=== PATIENT | female | born 1955 | race Caucasian/White ===

== ENCOUNTER 2017-06-09 20:20 | Emergency (ER) | payer OTHER ==
[~2017-06-09] VITALS: Ht 160 cm; Wt 129.5 kg
[~2017-06-09 20:20] MED LIST: ALBUTEROL; ALBUTEROL0.09 MG/A2 INH; AVELOX400 MG PO; BACTRIM DS 8001 TA1 PO; CARAFATE1 GM/10 ML PO; CIPROFLOXACIN500 MG PO; CLONAZEPAM1 MG PO; COLACE1 SUP RC; COLACE20 MG/5 ML PO; COLON HEALTH PO; COUMADIN2.5 MG PO; COUMADIN4 M1 PO; CYCLOBENZAPRINE10 MG PO; FLOVENT DI50 MCG/Act IH; FLUCONAZOLE100 MG PO; JANUVIA100 MG PO; LEVOTHYROXIN PO; LOPRESSOR25 MG PO; MACROBID100 M1 PO; MIRALAX17 GM/PACK PO; MORPHINE SULFAT30 M8 PO; NEXIUM40 MG PO; NORCO 325 MG-101 TAB PO; OSCAL,OYSTER S500 MG PO; OXYGEN NAS; PRILOSEC20 M1 PO; PYRIDIUM100 MG PO; PYRIDIUM200 M1 PO; PYRIDIUM200 MG PO; ROPINIROLE HYDRO1 MG PO; ROPINIROLE PO; SYMBICORT1 AE1 INH; SYNTHROID,LEV175 MCG PO; VICODIN 5/500 505 MG PO; VITAMIN D PO; [UNRECOGNIZED DRUG - OTHER] PO
== END 2017-06-09 22:08 | disposition home or self-care (01) ==
LOC: ED 20:20
DX: S80.02XA Contusion of left knee, initial encounter (principal); M17.12 Unilateral primary osteoarthritis, left knee; Z90.710 Acquired absence of both cervix and uterus; Z98.890 Other specified postprocedural states; Z79.899 Other long term (current) drug therapy; Z88.0 Allergy status to penicillin; Z88.6 Allergy status to analgesic agent; Z88.1 Allergy status to other antibiotic agents; W22.8XXA Striking against or struck by other objects, initial encounter; Y93.89 Activity, other specified; Y92.89 Other specified places as the place of occurrence of the external cause; Y99.9 Unspecified external cause status

== ENCOUNTER → 2017-06-17 | Outpatient (CLI) | payer OTHER ==
[2017-06-17 11:54] LABS: INTERNATIONAL NORM RATIO 2.5 (2.0-3.5)
== END | disposition home or self-care (01) ==
LOC: LAB 09:15
PROVIDERS: Family Medicine
DX: R79.1 Abnormal coagulation profile (principal)

== ENCOUNTER 2017-06-26 03:12 | Inpatient (IN) | payer OTHER ==
[~2017-06-26] VITALS: Ht 160 cm; Wt 131.3 kg
[2017-06-26] VITALS (8 sets, daily range): BP systolic 126–149; BP diastolic 40–80
[2017-06-26 04:08] LABS: BASO % 0.2 % (0.0-1.0); EOS % 0.2 % (1.0-4.0); HEMATOCRIT 43.4 % (37.0-47.0); HEMOGLOBIN 13.3 g/dl (12.0-16.0); LYMPH # 1.9 10*3/uL (1.3-4.4); MEAN CELL VOLUME 85.6 fl (81.0-99.0); MEAN CORPUSCULAR HGB 26.2 pg (27.0-31.0); MEAN CORPUSCULAR HGB CONC 30.6 g/dl (33.0-37.0); MEAN PLATELET VOLUME 10.3 fl (9.6-12.3); MONO # 0.4 10*3/uL (0.1-1.0); MONO % 4.7 % (3.0-9.0); NEUT # 6.9 10*3/uL (2.3-7.9); NEUT % 73.9 % (47.0-73.0); PLATELET COUNT AUTOMATED 205 10*3/uL (130-400); RED BLOOD COUNT 5.07 10*6/uL (4.10-5.10); RED CELL DISTRI WIDTH 15.9 % (0-14.5); WHITE BLOOD COUNT 9.3 10*3/uL (4.8-10.8)
[2017-06-26 04:12] LABS: BILIRUBIN NEGATIVE (NEGATIVE); BLOOD NEGATIVE (NEGATIVE); CLARITY CLEAR (CLEAR); COLOR YELLOW (YELLOW); GLUCOSE 3+ (NEGATIVE); KETONE TRACE (NEGATIVE); LEUKO ESTERASE TRACE (NEGATIVE); NITRITE NEGATIVE (NEGATIVE); PH 6.5 (5.0-9.0); SPECIFIC GRAVITY <= 1.005 (1.005-1.030); UROBILINOGEN 0.2 E.U./dl (0.2-1.0)
[2017-06-26 04:19] LABS: INTERNATIONAL NORM RATIO 1.9 (2.0-3.5)
[2017-06-26 04:26] LABS: ALBUMIN 3.6 gm/dl (3.1-4.5); ALKALINE PHOSPHATASE 149 U/L (45-117); BUN 18 mg/dl (7-24); CHLORIDE 96 mmol/L (98-107); CREATININE 1.11 mg/dL (0.55-1.02); LIPASE 79 U/L (73-393); POTASSIUM 4.1 mmol/L (3.5-5.1); SGOT/AST 22 IU/L (3-35); SGPT/ALT 49 U/L (12-78); SODIUM 136 mmol/L (136-145)
[2017-06-26 04:26] LABS: BACTERIA TRACE
[2017-06-26 04:29] LABS: TROPONIN I < 0.015 ng/ml (<0.045)
[2017-06-26] MEDS ORDERED: PROVENTIL HFA6.7 GM INH (08:05)
[2017-06-26] MEDS ORDERED: OSCAL/D,OYSTER250 MG PO (08:08)
[2017-06-26] MEDS ORDERED: LEVOTHYROXINE200 MC2 PO (08:12)
[2017-06-26] MEDS ORDERED: LEVOTHYROXINE50 MCG PO (08:13)
[2017-06-26] MEDS ORDERED: ROPINIROLE HYDRO2 M2 PO (08:19)
[2017-06-26] MEDS ORDERED: VITAMIN D32000 UNIT PO (08:23)
[2017-06-26] MEDS ORDERED: COUMADIN5 M2 PO (08:26)
[2017-06-26] MEDS ORDERED: FLONASE ALLERG9.9 ML NAS (08:29)
[2017-06-26] MEDS ORDERED: LASIX20 MG PO (08:30)
[2017-06-26] MEDS ORDERED: TRESIBA FL100 UNIT/1 SQ ×3 (08:32→17:27)
[2017-06-26] MEDS ORDERED: POTASSIUM CHLO10 ME4 PO (08:34)
[2017-06-26] MEDS ORDERED: HUMALOG100 UNIT/1 SQ ×2 (16:04→17:34)
[2017-06-26] MEDS ORDERED: LEVEMIR FL100 UNIT/1 SQ ×2 (16:05→17:32)
[2017-06-27] VITALS: BP 142/73
[2017-06-27 07:23] LABS: BASO % 0.2 % (0.0-1.0); EOS # 0.1 10*3/uL (0.0-0.4); EOS % 1.2 % (1.0-4.0); HEMOGLOBIN 13.1 g/dl (12.0-16.0); LYMPH % 36.5 % (27.0-41.0); MEAN CELL VOLUME 85.7 fl (81.0-99.0); MEAN CORPUSCULAR HGB 26.1 pg (27.0-31.0); MEAN CORPUSCULAR HGB CONC 30.5 g/dl (33.0-37.0); MEAN PLATELET VOLUME 10.9 fl (9.6-12.3); MONO # 0.4 10*3/uL (0.1-1.0); MONO % 4.9 % (3.0-9.0); NEUT # 4.6 10*3/uL (2.3-7.9); PLATELET COUNT AUTOMATED 215 10*3/uL (130-400); RED BLOOD COUNT 5.02 10*6/uL (4.10-5.10); RED CELL DISTRI WIDTH 16.3 % (0-14.5); WHITE BLOOD COUNT 8.2 10*3/uL (4.8-10.8)
[2017-06-27 07:34] LABS: INTERNATIONAL NORM RATIO 1.5 (2.0-3.5)
[2017-06-27 07:43] LABS: BUN 10 mg/dl (7-24); CHLORIDE 98 mmol/L (98-107); CHOLESTEROL 258 mg/dL (<200); CREATININE 0.77 mg/dL (0.55-1.02); PHOSPHOROUS 2.7 mg/dL (2.5-4.9); POTASSIUM 3.9 mmol/L (3.5-5.1); SODIUM 138 mmol/L (136-145); TRIGLYCERIDES 249 mg/dl (<150); VLDL CHOLESTEROL 50 mg/dL (6-40)
[2017-06-27 07:54] LABS: FREE T4 1.25 ng/dl (0.76-1.46); HDL CHOLESTEROL 70 mg/dl (40-60); LDL CHOLESTEROL 138 mg/dL (9-159); THYROID STIM HORMONE (HS) 0.699 uIU/ml (0.358-4.75)
[2017-06-27 08:00] VITALS: BP 134/50
[2017-06-27 09:23] LABS: VITAMIN D, 25-HYDROXY 66.2 ng/mL (30-100)
[2017-06-27 12:00] VITALS: BP 124/62
[2017-06-27 16:00] VITALS: BP 153/71
[2017-06-27 20:00] VITALS: BP 152/73
[2017-06-28] VITALS: BP 151/72
[2017-06-28 06:33] LABS: INTERNATIONAL NORM RATIO 1.7 (2.0-3.5)
[2017-06-28 08:00] VITALS: BP 162/71
[2017-06-28 11:48] VITALS: BP 151/67
[2017-06-28] MEDS ORDERED: Humalog SQ (15:40)
== END 2017-06-28 16:03 | disposition home or self-care (01) | DRG 637 ==
LOC: ED 03:12 → 5E 05:38 → EDHOLD 05:38 → 5E 05:52
PROVIDERS: Emergency Medicine Emergency Medical Services; Internal Medicine; Student in an Organized Health Care Education/Training Program
DX: E11.65 Type 2 diabetes mellitus with hyperglycemia (principal); G93.41 Metabolic encephalopathy; E87.2 Acidosis; E87.8 Other disorders of electrolyte and fluid balance, not elsewhere classified; E66.01 Morbid (severe) obesity due to excess calories; E83.41 Hypermagnesemia; Z68.43 Body mass index [BMI] 50.0-59.9, adult; D86.9 Sarcoidosis, unspecified; M31.6 Other giant cell arteritis; I10 Essential (primary) hypertension; E78.5 Hyperlipidemia, unspecified; M17.12 Unilateral primary osteoarthritis, left knee; J42 Unspecified chronic bronchitis; Z79.01 Long term (current) use of anticoagulants; Z99.81 Dependence on supplemental oxygen; Z86.718 Personal history of other venous thrombosis and embolism; Z79.51 Long term (current) use of inhaled steroids; Z79.4 Long term (current) use of insulin; Z90.49 Acquired absence of other specified parts of digestive tract; Z79.899 Other long term (current) drug therapy; Z90.710 Acquired absence of both cervix and uterus; Z88.1 Allergy status to other antibiotic agents; Z88.0 Allergy status to penicillin; Z88.8 Allergy status to other drugs, medicaments and biological substances

== ENCOUNTER 2017-07-23 09:18 | Inpatient (IN) | payer OTHER ==
[~2017-07-23] VITALS: Ht 157.4 cm; Wt 130.0 kg
--- NOTE | ~2017-07-23 | PR ---
[place], [place] PROGRESS NOTE NAME: DOMINICK GREGORY [facility] #: [id number] UNIT #: [id number] ROOM: 525 DOCTOR: DULCE OVIEDO MD,NOEMI BIRTHDATE: [birth year] DOS: 07/25/2017 PULMONARY PROGRESS NOTE SUBJECTIVE: The patient has been kept n.p.o. for the bronchoscopy planned for today. She has not been noted any symptoms of chest pain or any hemoptysis. Coughing remains, persistent for this patient as previously without changes as [id number]. Denies symptoms of abdominal pain. Denies symptoms of nausea or vomiting. She has not been reported any changes in the chronic swelling of the left lower extremity. Remaining systems were reviewed. They were noted all negative. PHYSICAL EXAMINATION: VITAL SIGNS: Normal temperature, respiratory rate 18, heart rate 75, blood pressure 117/46 and 118/53. The pulse oxygen saturation recorded as 98% saturation on 2 liters nasal cannula. HEENT: Head was atraumatic, chronic obesity. NECK: Supple. CARDIOVASCULAR: S1, S2 audible. LUNGS: The patient was noted without any wheezing or crackles at the present time. Breaths are noted moderately diminished bilaterally today. ABDOMEN: Soft and nontender, positive present. EXTREMITIES: Noted without any new changes. Chronic edema of the extremities, noted on the left side. SKIN: Visible skin, no lesions or rashes. CENTRAL NERVOUS SYSTEM: Noted without any gross focal neurologic deficit. LABORATORY DATA: Ultrasound of lower extremities without any evidence of deep venous thrombosis. The PT/INR for the patient this morning was done was noted 1.1, which is normal. BMP this morning, glucose 250. BUN and creatinine was normal. IMPRESSION: The patient with ongoing severe coughing. Bronchial asthma exacerbation with persistent respiratory symptoms, not resolving. Current plan of treatment for acute chronic edema of lower extremities, history of recurrent deep venous thrombosis, ____therapeutic INR, after administration of vitamin K. Acute chronic obesity with suspected diagnosis of obstructive sleep apnea disorder. PLAN OF TREATMENT: No changes in the plan of care for the patient at this time needs to be done. Proceed with the fiberoptic bronchoscopy already planned. The patient's anticoagulation will be resumed after an uneventful bronchoscopy. No additional change in treatment otherwise will be made for today. Usual care, supportive therapy, plan of management and care. [place], [place] PROGRESS NOTE NAME: DOMINICK GREGORY UNIT #: [id number] ROOM: [facility] DOCTOR: NOEMI MARQUIS MD BIRTHDATE: [birth year] NOEMI CARDONA MD CM:NAVEEN [id number] NOEMI OVIEDO MD 07/26/17 0416 interface
--- NOTE | ~2017-07-23 | PROC NOTE ---
[place], [place] PROCEDURE NOTE NAME: DOMINICK GREGORY UNIT #: [id number] ROOM: 525 DOCTOR: DULCE OVIEDO MD,NOEMI BIRTHDATE: [birth year] DOS: 07/25/2017 PREOPERATIVE DIAGNOSES: Persistent severe nonproductive cough, which has been noted ongoing, nonresolving with previous treatment to current therapy. POSTOPERATIVE DIAGNOSES: Removal of the moderate amount of mucus impaction in airways, greater in the left than the right side. PROCEDURE DESCRIPTION: Informed consent obtained for the patient. She was brought to the OR and placed in supine position. Conscious sedation administered by the Anesthesia Department. After achieving good sedation for the patient, the bronchoscope was advanced to the airway into laryngeal area. Epiglottis and vocal cords were seen. Bronchoscope advanced through the vocal cord and tracheal lumen. Tracheal lumen was identified and noted with moderate amount of secretion. Secretion present in the tracheal lumen was suctioned out. The patient was noted with moderate impaction of the mucus plug in the left lower and lingular opening. The right side of the airway was noted with a small mucus impaction. The procedure was well tolerated by the patient without any difficulty. Postoperative findings will be discussed with the patient once the patient recovers the effects of acute sedation. No immediate treatment changes will be needed. NOEMI CARODNA MD CM:PROCNOTE:PROCEDURE NOTE [id number] NOEMI OVIEDO MD
--- NOTE | ~2017-07-23 | PR ---
[place], [place] PROGRESS NOTE NAME: DOMINICK GREGORY UNIT #: [id number] ROOM: 525 DOCTOR: NOEMI MARQUIS MD BIRTHDATE: [birth year] DOS: 07/26/2017 SUBJECTIVE: Bronchoscopy done yesterday, which resulted in marked improvement in the coughing as well as wheezing. The patient denies symptoms of chest pain. Denies symptoms of hemoptysis. She has been comfortably resting on the bed for the patient using the oxygen supplementation. OBJECTIVE: VITAL SIGNS: The patient showed normal temperature, respiratory rate 20, heart rate 69, blood pressure 113/54, pulse oxygen saturation on 2 liters nasal canula 100% saturation at rest. HEENT: Head was atraumatic. Eyes nonicterus. NECK: Supple. CARDIOVASCULAR SYSTEM: S1, S2 is audible. LUNGS: Noted clear to auscultation bilaterally. No wheezing or crackles today. ABDOMEN: Soft, nontender. EXTREMITIES: Without any acute edema. LABORATORY DATA: The culture of the bronchial washing of the patient was noted as normal denise. Final results were pending. Gram stain many white blood cells, few epithelial cells, moderate gram-positive cocci in pairs, chains and clusters. IMPRESSION: The patient with significant improvement noted with coughing. After removal of the mucous impaction, major airways resolving bronchial asthma, chronic deep venous thrombosis. Lower extremity currently treated with anticoagulation, subtherapeutic INR. The patient was given vitamin K. There was no evidence of acute deep venous thrombosis, lower extremity. PLAN OF TREATMENT: The patient could be discharged home with tapering dose of prednisone and oral antibiotics. She was advised to resume her previous anticoagulation noted effective to maintain a therapeutic INR as previously. The INR should be in the therapeutic range in the next couple of days with continued treatment. [place], [place] PROGRESS NOTE NAME: DOMINICK GREGORY UNIT #: [id number] ROOM: 525 DOCTOR: NOEMI MARQUIS MD BIRTHDATE: [birth year] NOEMI CARDONA MD CM:PNTRANS [id number] NOEMI OVIEDO MD 07/27/17 1034 interface
--- NOTE | ~2017-07-23 | CON ---
[place], [place] REPORT OF CONSULTATION NAME: DOMINICK GREGORY [facility] #: [id number] UNIT #: [id number] ROOM: 525 DOCTOR: DULCE OVIEDO MDNOEMI BIRTHDATE: [birth year] DOS: 07/24/2017 PULMONARY CONSULTATION, EVALUATION, AND MANAGEMENT CONSULTATION REQUESTED BY: Hospitalist services. REASON FOR CONSULTATION: For assessment of acute exacerbation of COPD. HISTORY OF PRESENT ILLNESS: This is a 61-year-old white female patient with known multiple medical problems including COPD, chronic hypoxic respiratory failure, has been noted with increased symptoms of coughing, chest congestion, and shortness of breath ongoing for the past several days. The patient stated the symptoms have been noted progressively worsening, now resolved. She has been admitted in [facility] per records in the Psychiatry Department for a couple of weeks for the medical management of visual hallucination and other issues and discharged about a week ago. The patient's symptoms has been noted progressively worsening at this time. She has been noted severe cough, which has been noted nonproductive. She has not been expectorate sputum, noted excessive chest congestion continuously. Shortness of breath was noted at rest, mildly. The patient denies symptoms of hemoptysis with those symptoms. Denies symptoms of chest trauma. REVIEW OF SYSTEMS: CONSTITUTIONAL SYMPTOMS: Fatigue and tiredness noted without symptoms of fever or chills. EYES: Denies burning, redness, or tenderness. EARS, NOSE, AND THROAT SYMPTOMS: Denies sore throat, hoarseness, or otalgia. CARDIOVASCULAR SYSTEM: Denies any pain, edema, or pain of lower extremity. GASTROINTESTINAL SYMPTOMS: Denies dysphagia, nausea, vomiting, diarrhea, abdominal pain, hematemesis, melena, or hematochezia. GENITOURINARY SYMPTOMS: Denies dysuria, suprapubic pain, or hematuria. MUSCULOSKELETAL SYMPTOMS: The patient denies any acute joint pain, redness, or tenderness. SKIN: Noted without any lesions or rashes. CENTRAL NERVOUS SYSTEM: Denies symptoms of seizures. Denies symptoms of diplopia. Remaining systems were reviewed and they were noted all negative. PAST MEDICAL HISTORY: Known with history of: 1. Diagnosis of sarcoidosis, details unknown at this time. 2. COPD. 3. Giant cell arteritis. 4. Essential hypertension. 5. History of recurrent deep venous thrombosis. 6. Hypomagnesemia. 7. Lactic acidosis. 8. Morbid obesity. 9. Osteoarthritis of the major joints. 10. Chronic hypoxic respiratory failure, use of oxygen 2 liter nasal cannula. 11. History of hypothyroidism. [place], [place] REPORT OF CONSULTATION NAME: DOMINICK GREGORY UNIT #: [id number] ROOM: [facility] DOCTOR: DULCE OVIEDO MD,NOEMI BIRTHDATE: [birth year] 12. History of allergic rhinitis. 13. History of restless leg syndrome. PAST SURGICAL HISTORY: Noted: 1. Complete abdominal hysterectomy. 2. Appendectomy. 3. Cholecystectomy. 4. Temporal artery biopsy. 5. T and A. SOCIAL HISTORY: Reported , has 2 children, and lived at home. She has been exposed to secondhand smoke, but does not have a primary history of tobacco use. FAMILY HISTORY: The patient's father at age 50+ years-old from complication of myocardial infarction. Mother at age [id number] from complication of CVA. HOME MEDICATIONS: Listed as use of Proventil HFA, Symbicort, cyclobenzaprine, Bentyl, Depakote, vitamin D, Flonase, Lasix, Levemir insulin, sliding scale insulin coverage, levothyroxine, Tradjenta, Lopressor, morphine sulfate 30 mg b.i.d. oral, MiraLax, prednisone 10 mg daily, Risperdal, Requip, and Coumadin. DRUG ALLERGIES: NOTED WITH MULTIPLE ALLERGIES THAT INCLUDE CEPHALOSPORINS, MACROLIDES, PENICILLINS, PROSTAGLANDINS, TRICYCLIC COMPOUNDS, Z-MIRTA, AMITRIPTYLINE, CELEBREX, CLINDAMYCIN, ARTHROTEC, DOXYCYCLINE, CYMBALTA, ZETIA, TRICOR, SINGULAIR, MACROBID, TOPAMAX, AND EFFEXOR. PHYSICAL EXAMINATION: GENERAL: This is a 61-year-old female patient who has been currently lying in the bed without any acute distress, noted coughing without any sputum expectoration. Height was noted 5 feet 3 inches, weight of 286 pounds, and BMI 52.4. VITAL SIGNS: Vital signs of the patient, which has been recorded showed normal temperature to 99.2 degree Fahrenheit, respiratory rate 18-20, heart rate 86-77, blood pressure 120/51-123/47. Pulse oxygen saturation on 2 liters nasal cannula is 94% saturation recorded. HEENT: On examination, head was atraumatic. Eyes nonicterus. NECK: Supple. Severe decreased posterior pharyngeal space ____ and ____ of soft tissue structures. CARDIOVASCULAR: S1, S2 is audible. LUNGS: The patient was noted with moderate decreased breath sounds noted in the lungs bilaterally with expiratory wheezing. There were no crackles. ABDOMEN: Soft, obese, and nontender. Bowel sounds present. EXTREMITIES: The patient noted chronic obesity with edema, which is described as chronic by the patient on the left lower extremity. VISIBLE SKIN: No lesions or rashes. MUSCULOSKELETAL SYMPTOMS: The patient without any acute deformities. CENTRAL NERVOUS SYSTEM: The patient's cranial nerves 2-12 intact. [place], [place] REPORT OF CONSULTATION NAME: DOMINICK GREGORY UNIT #: [id number] ROOM: [facility] DOCTOR: BRITTA MARQUIS MDM BIRTHDATE: [birth year] LABORATORY DATA: The chest x-ray of the patient yesterday, 1 view noted clear of any acute infiltration. PT and INR were noted yesterday 2.3 and this morning was noted as 2.3 as well. Lactic acid yesterday noted 3.1. CBC for the patient yesterday admission, WBC count 14.4, hemoglobin and hematocrit normal, and platelet count was normal. CMP of the patient that was done, glucose 192, BUN 24, and creatinine was normal. CMP for the patient that was done this morning shows glucose 227, BUN and creatinine were normal. CBC of this morning, WBC count remains normal, hemoglobin 10.3, and platelet count normal. The culture of the sputum was pending for today. Gram stain has many white blood cells, moderate epithelial cells, a few gram-positive cocci in pairs, and gram-negative diplococci. IMPRESSION: 1. The patient who has been currently treated for acute exacerbation of chronic obstructive pulmonary disease, severe coughing, and chest congestion reported by the patient for several days without any improvement. 2. Chronic anticoagulation, which has been noted with a history of recurrent deep venous thrombosis of the lower extremities. 3. History of allergic rhinitis. 4. Severe morbid obesity. 5. Restless leg syndrome. 6. Hypothyroidism. PLAN OF THERAPY: The patient will be given one dose of vitamin K 2.5 mg to reduce the INR. The bronchoscopy will be done tomorrow morning for assessment of current severe nonproductive cough, which is not responding to the treatment. Continuation of the bronchodilators as well. Continue oxygen supplementation to maintain a pulse oxygen saturation 92% or greater. Chest x-ray does not show any evidence of acute pneumonia. Further additional treatment changes will be made for this patient based on the progression of the illness. Risk and benefits of bronchoscopy were discussed with the patient and accepted by the patient. Thanks for allowing me to participate in the care of this patient. NOEMI CARDONA MD CM:CONSTR:REPORT OF CONSULTATION 1433 07/25/17 0125 interface
--- NOTE | ~2017-07-23 | EKG ---
[place], [place] ELECTROCARDIOGRAM REPORT NAME: DOMINICK GREGORY UNIT #: [id number] ROOM: [facility] DOCTOR: DULCE OVIEDO MD,NOEMI BIRTHDATE: [birth year] DOS: 07/23/2017 ELECTROCARDIOGRAM TIME: 9:45 a.m. CONCLUSION: Normal sinus rhythm noted. Heart rate 99 beats per minute. No other electrocardiographic abnormalities were noted. NOEMI CARDONA MD CM:EKGRPT:ELECTROCARDIOGRAM REPORT [id number] NOEMI OVIEDO MD
[~2017-07-23 09:18] MED LIST changes: +COUMADIN5 M2 PO; +FLONASE ALLERG9.9 ML NAS; +HUMALOG100 UNIT/1 SQ; +Humalog SQ; +LASIX20 MG PO; +LEVEMIR FL100 UNIT/1 SQ; +LEVOTHYROXINE200 MC2 PO; +LEVOTHYROXINE50 MCG PO; +OSCAL/D,OYSTER250 MG PO; +POTASSIUM CHLO10 ME4 PO; +PROVENTIL HFA6.7 GM INH; +ROPINIROLE HYDRO2 M2 PO; +TRESIBA FL100 UNIT/1 SQ; +VITAMIN D32000 UNIT PO
[2017-07-23 09:27] VITALS: BP 123/46
[2017-07-23 09:54] LABS: BASO % 0.2 % (0.0-1.0); EOS # 0.1 10*3/uL (0.0-0.4); EOS % 0.6 % (1.0-4.0); HEMATOCRIT 39.8 % (37.0-47.0); HEMOGLOBIN 12.1 g/dl (12.0-16.0); LYMPH # 1.3 10*3/uL (1.3-4.4); LYMPH % 9.2 % (27.0-41.0); MEAN CELL VOLUME 88.4 fl (81.0-99.0); MEAN CORPUSCULAR HGB 26.9 pg (27.0-31.0); MEAN CORPUSCULAR HGB CONC 30.4 g/dl (33.0-37.0); MEAN PLATELET VOLUME 10.8 fl (9.6-12.3); MONO % 7.1 % (3.0-9.0); NEUT # 11.8 10*3/uL (2.3-7.9); NEUT % 81.8 % (47.0-73.0); PLATELET COUNT AUTOMATED 198 10*3/uL (130-400); RED CELL DISTRI WIDTH 16.9 % (0-14.5); WHITE BLOOD COUNT 14.4 10*3/uL (4.8-10.8)
[2017-07-23 10:03] LABS: ACT PARTIAL THROMBO TIME 27.3 SECONDS (20.8-31.5); INTERNATIONAL NORM RATIO 2.3 (2.0-3.5)
[2017-07-23 10:39] LABS: ALKALINE PHOSPHATASE 137 U/L (45-117); BUN 24 mg/dl (7-24); CHLORIDE 98 mmol/L (98-107); CREATININE 0.88 mg/dL (0.55-1.02); POTASSIUM 3.9 mmol/L (3.5-5.1); SGOT/AST 16 IU/L (3-35); SGPT/ALT 40 U/L (12-78); SODIUM 139 mmol/L (136-145)
[2017-07-23 10:42] LABS: TROPONIN I < 0.015 ng/ml (<0.045)
[2017-07-23 11:07] VITALS: BP 111/87; BP 114/44
[2017-07-23 11:13] LABS: BILIRUBIN NEGATIVE (NEGATIVE); BLOOD NEGATIVE (NEGATIVE); CLARITY CLEAR (CLEAR); COLOR YELLOW (YELLOW); GLUCOSE 3+ (NEGATIVE); KETONE TRACE (NEGATIVE); LEUKO ESTERASE NEGATIVE (NEGATIVE); NITRITE NEGATIVE (NEGATIVE); PH 5.5 (5.0-9.0); SPECIFIC GRAVITY 1.015 (1.005-1.030); UROBILINOGEN 0.2 E.U./dl (0.2-1.0)
[2017-07-23] MEDS ORDERED: ERGOCAL2500 UNIT PO (11:55)
[2017-07-23 12:00] VITALS: BP 134/60
[2017-07-23] MEDS ORDERED: LEVOTHYROXINE75 MCG PO (12:01)
[2017-07-23] MEDS ORDERED: COUMADIN2.5 M1 PO (12:09)
[2017-07-23] MEDS ORDERED: WARFARIN SOD5 MG PO (12:10)
[2017-07-23] MEDS ORDERED: HUMALOG100 UNIT/1 SQ (12:15)
[2017-07-23] MEDS ORDERED: DELTASONE20 M1 PO (12:19)
[2017-07-23] MEDS ORDERED: TRADJENTA5 M1 PO (12:22)
[2017-07-23] MEDS ORDERED: LEVEMIR100 UNIT/1 SQ (12:23)
[2017-07-23] MEDS ORDERED: BENTYL PO (12:29)
[2017-07-23] MEDS ORDERED: DEPAKOTE ER250 MG PO (12:30)
[2017-07-23] MEDS ORDERED: RISPERDAL1 M1 PO (12:31)
[2017-07-23] MEDS ORDERED: COLON HERBAL C1 EACH PO (12:37)
[2017-07-23] MEDS ORDERED: Depakote250 MG PO (12:51)
[2017-07-23 16:00] VITALS: BP 134/55
[2017-07-23 20:00] VITALS: BP 123/47
[2017-07-24] VITALS: BP 119/55
[2017-07-24 06:46] LABS: HEMOGLOBIN 10.3 g/dl (12.0-16.0); MEAN CELL VOLUME 87.2 fl (81.0-99.0); MEAN CORPUSCULAR HGB 26.9 pg (27.0-31.0); MEAN CORPUSCULAR HGB CONC 30.8 g/dl (33.0-37.0); MEAN PLATELET VOLUME 11.1 fl (9.6-12.3); PLATELET COUNT AUTOMATED 178 10*3/uL (130-400); RED BLOOD COUNT 3.83 10*6/uL (4.10-5.10); RED CELL DISTRI WIDTH 17.2 % (0-14.5); WHITE BLOOD COUNT 10.7 10*3/uL (4.8-10.8)
[2017-07-24 06:50] LABS: HEMATOCRIT 33.4 % (37.0-47.0)
[2017-07-24 07:04] LABS: ACT PARTIAL THROMBO TIME 34.5 SECONDS (20.8-31.5); ALBUMIN 2.4 gm/dl (3.1-4.5); ALKALINE PHOSPHATASE 99 U/L (45-117); BUN 20 mg/dl (7-24); CHLORIDE 102 mmol/L (98-107); CREATININE 0.69 mg/dL (0.55-1.02); INTERNATIONAL NORM RATIO 2.3 (2.0-3.5); POTASSIUM 4.3 mmol/L (3.5-5.1); SGOT/AST 12 IU/L (3-35); SGPT/ALT 37 U/L (12-78); SODIUM 140 mmol/L (136-145); TOTAL PROTEIN 5.4 gm/dL (6.4-8.2)
[2017-07-24 07:17] LABS: PLATELET SUFFICIENCY NORMAL (NORMAL); TOTAL CELLS COUNTED 100 #CELLS
[2017-07-24 08:00] VITALS: BP 120/51
[2017-07-24 16:00] VITALS: BP 137/70
[2017-07-24 20:00] VITALS: BP 110/54; BP 137/62
[2017-07-25] VITALS (9 sets, daily range): BP systolic 110–131; BP diastolic 45–65
[2017-07-25 06:37] LABS: INTERNATIONAL NORM RATIO 1.1 (2.0-3.5)
[2017-07-25 06:47] LABS: CHLORIDE 104 mmol/L (98-107); POTASSIUM 4.4 mmol/L (3.5-5.1); SODIUM 141 mmol/L (136-145)
[2017-07-25 06:51] LABS: BUN 21 mg/dl (7-24); CREATININE 0.71 mg/dL (0.55-1.02); PHOSPHOROUS 3.4 mg/dL (2.5-4.9)
[2017-07-26] VITALS: BP 132/56
[2017-07-26 06:33] LABS: BASO % 0.1 % (0.0-1.0); HEMATOCRIT 32.4 % (37.0-47.0); LYMPH # 0.7 10*3/uL (1.3-4.4); LYMPH % 8.1 % (27.0-41.0); MEAN CELL VOLUME 87.8 fl (81.0-99.0); MEAN CORPUSCULAR HGB 27.1 pg (27.0-31.0); MEAN CORPUSCULAR HGB CONC 30.9 g/dl (33.0-37.0); MEAN PLATELET VOLUME 10.9 fl (9.6-12.3); MONO # 0.3 10*3/uL (0.1-1.0); MONO % 3.2 % (3.0-9.0); NEUT # 7.7 10*3/uL (2.3-7.9); NEUT % 86.8 % (47.0-73.0); PLATELET COUNT AUTOMATED 187 10*3/uL (130-400); RED BLOOD COUNT 3.69 10*6/uL (4.10-5.10); RED CELL DISTRI WIDTH 16.9 % (0-14.5); WHITE BLOOD COUNT 8.8 10*3/uL (4.8-10.8)
[2017-07-26 06:52] LABS: BUN 19 mg/dl (7-24); CHLORIDE 103 mmol/L (98-107); CREATININE 0.71 mg/dL (0.55-1.02); POTASSIUM 4.4 mmol/L (3.5-5.1); SODIUM 142 mmol/L (136-145)
[2017-07-26 08:00] VITALS: BP 128/59
[2017-07-26] MEDS ORDERED: LEVOFLOXACIN500 MG PO (10:26)
[2017-07-26] MEDS ORDERED: PREDNISONE10 MG PO (10:26)
[2017-07-26 12:00] VITALS: BP 113/54
[2017-07-26 15:09] LABS: ACID FAST SPEC PROCESSING Concentration (.)
[2017-07-26 16:00] VITALS: BP 117/63
== END 2017-07-26 18:05 | disposition home or self-care (01) | DRG 871 ==
LOC: ED 09:18 → EDHOLD 10:56 → 5E 10:56
PROVIDERS: Family Medicine; Internal Medicine; Internal Medicine Critical Care Medicine; Internal Medicine Nephrology; Nurse Practitioner Family
PROC: 0BC18ZZ Extirpation of Matter from Trachea, Via Natural or Artificial Opening Endoscopic (ICD-10-PCS; principal; 2017-07-25)
PROC: 0BC98ZZ Extirpation of Matter from Lingula Bronchus, Via Natural or Artificial Opening Endoscopic (ICD-10-PCS; 2017-07-25)
PROC: 0BC48ZZ Extirpation of Matter from Right Upper Lobe Bronchus, Via Natural or Artificial Opening Endoscopic (ICD-10-PCS; 2017-07-25)
PROC: 0BC88ZZ Extirpation of Matter from Left Upper Lobe Bronchus, Via Natural or Artificial Opening Endoscopic (ICD-10-PCS; 2017-07-25)
PROC: 0BC58ZZ Extirpation of Matter from Right Middle Lobe Bronchus, Via Natural or Artificial Opening Endoscopic (ICD-10-PCS; 2017-07-25)
PROC: 0BC38ZZ Extirpation of Matter from Right Main Bronchus, Via Natural or Artificial Opening Endoscopic (ICD-10-PCS; 2017-07-25)
PROC: 0BC78ZZ Extirpation of Matter from Left Main Bronchus, Via Natural or Artificial Opening Endoscopic (ICD-10-PCS; 2017-07-25)
PROC: 0BC68ZZ Extirpation of Matter from Right Lower Lobe Bronchus, Via Natural or Artificial Opening Endoscopic (ICD-10-PCS; 2017-07-25)
PROC: 0BCB8ZZ Extirpation of Matter from Left Lower Lobe Bronchus, Via Natural or Artificial Opening Endoscopic (ICD-10-PCS; 2017-07-25)
DX: A41.9 Sepsis, unspecified organism (principal); J18.9 Pneumonia, unspecified organism; J96.11 Chronic respiratory failure with hypoxia; T17.490A Other foreign object in trachea causing asphyxiation, initial encounter; T17.590A Other foreign object in bronchus causing asphyxiation, initial encounter; E87.2 Acidosis; J44.0 Chronic obstructive pulmonary disease with (acute) lower respiratory infection; E44.1 Mild protein-calorie malnutrition; J45.901 Unspecified asthma with (acute) exacerbation; J44.1 Chronic obstructive pulmonary disease with (acute) exacerbation; I82.509 Chronic embolism and thrombosis of unspecified deep veins of unspecified lower extremity; Z68.43 Body mass index [BMI] 50.0-59.9, adult; E11.65 Type 2 diabetes mellitus with hyperglycemia; Z99.81 Dependence on supplemental oxygen; B37.9 Candidiasis, unspecified; E03.9 Hypothyroidism, unspecified; E78.5 Hyperlipidemia, unspecified; K59.09 Other constipation; E66.01 Morbid (severe) obesity due to excess calories; R65.20 Severe sepsis without septic shock; R81 Glycosuria; G25.81 Restless legs syndrome; K21.9 Gastro-esophageal reflux disease without esophagitis; D64.9 Anemia, unspecified; X58.XXXA Exposure to other specified factors, initial encounter; M17.12 Unilateral primary osteoarthritis, left knee; Z90.710 Acquired absence of both cervix and uterus; Z90.89 Acquired absence of other organs; Z90.49 Acquired absence of other specified parts of digestive tract; Z82.49 Family history of ischemic heart disease and other diseases of the circulatory system; Z82.3 Family history of stroke; Z79.4 Long term (current) use of insulin; Z88.6 Allergy status to analgesic agent; Z88.1 Allergy status to other antibiotic agents; Z88.0 Allergy status to penicillin; Z88.8 Allergy status to other drugs, medicaments and biological substances; Z79.899 Other long term (current) drug therapy; Y93.89 Activity, other specified; Y92.89 Other specified places as the place of occurrence of the external cause; Y99.8 Other external cause status

== ENCOUNTER → 2018-03-24 | Outpatient (CLI) | payer OTHER ==
[~2018-03-24] MED LIST changes: +BENTYL PO; +BUMETANIDE1 MG PO; +CIPRO500 MG PO; +COLACE 2-IN-11 EACH PO; +COLON HERBAL C1 EACH PO; +COUMADIN2.5 M1 PO; +Coumadin5 MG PO; +DELTASONE20 M1 PO; +DEPAKOTE ER250 MG PO; +DICYCLOMINE HCL10 MG PO; +Depakote250 MG PO; +ERGOCAL2500 UNIT PO; +FUROSEMIDE20 M1 PO; +KLONOPIN1 M1 PO; +LEVEMIR100 UNIT/1 SQ; +LEVOFLOXACIN500 MG PO; +LEVOTHYROXINE75 MCG PO; +MIRALAX119 GM PO; +MORPHINE SULFAT3011 PO; +NYSTATIN CREAM15 GM T; +OMEGA 3 1,0001 EACH PO; +Oscal,Oyster S500 MG PO; +PHILLIPS' COLO1 EACH PO; +POTASSIUM CHLO10 ME5 PO; +PREDNISONE10 M1 PO; +PREDNISONE10 MG PO; +PROAIR HFA8.5 GM INH; +REQUIP1 M1 PO; +RISPERDAL1 M1 PO; +SYMB160 INH; +TOPROL XL25 MG PO; +TRAD5TAB1 PO; +TRADJENTA5 M1 PO; +VITAMIN D32000 UNI1 PO; +WARFARIN SOD5 MG PO
== END | disposition home or self-care (01) ==
LOC: LAB 15:04
DX: R19.7 Diarrhea, unspecified (principal)

== ENCOUNTER → 2018-04-04 | Outpatient (CLI) | payer OTHER | END | disposition home or self-care (01) | LOC: LAB 15:57 | DX: R19.7 Diarrhea, unspecified (principal) ==

== ENCOUNTER 2019-03-03 13:06 | Emergency (ER) | payer OTHER ==
[~2019-03-03] VITALS: Ht 160 cm; Wt 127.0 kg
[~2019-03-03 13:06] MED LIST changes: -KENALOG 0.1%80 GM T; -SEPTDS PO
[2019-03-03] MEDS ORDERED: KENALOG 0.1%80 GM T (13:59)
[2019-03-03] MEDS ORDERED: SEPTDS PO (13:59)
== END 2019-03-03 14:16 | disposition home or self-care (01) ==
LOC: ED 13:06
DX: S40.862A Insect bite (nonvenomous) of left upper arm, initial encounter (principal); S40.861A Insect bite (nonvenomous) of right upper arm, initial encounter; L08.9 Local infection of the skin and subcutaneous tissue, unspecified; E11.9 Type 2 diabetes mellitus without complications; Z88.1 Allergy status to other antibiotic agents; Z88.8 Allergy status to other drugs, medicaments and biological substances; Z88.0 Allergy status to penicillin; Z88.6 Allergy status to analgesic agent; Z79.2 Long term (current) use of antibiotics; Z79.4 Long term (current) use of insulin; Z79.899 Other long term (current) drug therapy; Z90.710 Acquired absence of both cervix and uterus; Z90.49 Acquired absence of other specified parts of digestive tract; W57.XXXA Bitten or stung by nonvenomous insect and other nonvenomous arthropods, initial encounter; Y93.89 Activity, other specified; Y92.89 Other specified places as the place of occurrence of the external cause; Y99.8 Other external cause status

== ENCOUNTER → 2019-03-03 | Outpatient (CLI) | payer OTHER ==
[~2019-03-03] MED LIST changes: +KENALOG 0.1%80 GM T; +SEPTDS PO
[2019-03-03 13:07] LABS: BILIRUBIN NEGATIVE (NEGATIVE); BLOOD NEGATIVE (NEGATIVE); CLARITY SL CLOUDY (CLEAR); COLOR YELLOW (YELLOW); GLUCOSE NEGATIVE (NEGATIVE); KETONE NEGATIVE (NEGATIVE); LEUKO ESTERASE 1+ (NEGATIVE); NITRITE NEGATIVE (NEGATIVE); SPECIFIC GRAVITY 1.025 (1.005-1.030); UROBILINOGEN 0.2 E.U./dl (0.2-1.0)
[2019-03-03 13:10] LABS: BASO % 0.5 % (0.0-1.0); EOS # 0.2 10*3/uL (0.0-0.4); EOS % 2.1 % (1.0-4.0); HEMATOCRIT 40.4 % (37.0-47.0); HEMOGLOBIN 12.7 g/dl (12.0-16.0); LYMPH # 0.8 10*3/uL (1.3-4.4); LYMPH % 10.1 % (27.0-41.0); MEAN CELL VOLUME 89.8 fl (81.0-99.0); MEAN CORPUSCULAR HGB 28.2 pg (27.0-31.0); MEAN CORPUSCULAR HGB CONC 31.4 g/dl (33.0-37.0); MEAN PLATELET VOLUME 10.8 fl (9.6-12.3); MONO # 0.4 10*3/uL (0.1-1.0); MONO % 4.4 % (3.0-9.0); NEUT # 6.7 10*3/uL (2.3-7.9); NEUT % 82.7 % (47.0-73.0); PLATELET COUNT AUTOMATED 210 10*3/uL (130-400); RED CELL DISTRI WIDTH 13.9 % (0-14.5); WHITE BLOOD COUNT 8.1 10*3/uL (4.8-10.8)
[2019-03-03 13:25] LABS: ALBUMIN 3.3 gm/dl (3.1-4.5); ALKALINE PHOSPHATASE 93 U/L (45-117); BUN 18 mg/dl (7-24); CHLORIDE 108 mmol/L (98-107); CHOLESTEROL 235 mg/dL (<200); HDL CHOLESTEROL 65 mg/dl (40-60); LDL CHOLESTEROL 143 mg/dL (9-159); POTASSIUM 4.3 mmol/L (3.5-5.1); SGOT/AST 17 IU/L (3-35); SGPT/ALT 18 U/L (12-78); SODIUM 139 mmol/L (136-145); TOTAL PROTEIN 6.7 gm/dL (6.4-8.2); TRIGLYCERIDES 135 mg/dl (<150); VLDL CHOLESTEROL 27 mg/dL (6-40)
[2019-03-03 13:36] LABS: BACTERIA 2+
[2019-03-04 06:38] LABS: CREATININE,URINE 126.1 mg/dL (Not Estab.); MICRO ALBUMIN/CRE RATIO 8.5 (0.0-30.0)
== END | disposition home or self-care (01) ==
LOC: LAB 12:21
PROVIDERS: Family Medicine
DX: E11.65 Type 2 diabetes mellitus with hyperglycemia (principal); I10 Essential (primary) hypertension; E03.8 Other specified hypothyroidism; M31.6 Other giant cell arteritis; Z79.4 Long term (current) use of insulin

== ENCOUNTER → 2019-11-24 | Outpatient (CLI) | payer OTHER ==
[~2019-11-24] MED LIST changes: +KENALOG 0.1%80 GM T; +SEPTDS PO
[2019-11-24 17:10] LABS: ALBUMIN 3.3 gm/dl (3.1-4.5); ALKALINE PHOSPHATASE 95 U/L (45-117); BUN 21 mg/dl (7-24); CHLORIDE 106 mmol/L (98-107); CHOLESTEROL 264 mg/dL (<200); CREATININE 1.02 mg/dL (0.55-1.02); HDL CHOLESTEROL 64 mg/dl (40-60); LDL CHOLESTEROL 167 mg/dL (9-159); POTASSIUM 4.4 mmol/L (3.5-5.1); SGOT/AST 14 IU/L (3-35); SGPT/ALT 19 U/L (12-78); SODIUM 139 mmol/L (136-145); TOTAL PROTEIN 6.8 gm/dL (6.4-8.2); TRIGLYCERIDES 167 mg/dl (<150); VLDL CHOLESTEROL 33 mg/dL (6-40)
[2019-11-24 17:11] LABS: FREE T4 1.59 ng/dl (0.76-1.46)
[2019-11-24 17:16] LABS: THYROID STIM HORMONE (HS) 0.154 uIU/ml (0.358-4.75)
[2019-11-25 07:05] LABS: CREATININE,URINE 108.8 mg/dL (Not Estab.)
== END | disposition home or self-care (01) ==
LOC: LAB 15:53
PROVIDERS: ATTEND Nurse Practitioner
DX: E03.9 Hypothyroidism, unspecified (principal); E11.9 Type 2 diabetes mellitus without complications; E78.2 Mixed hyperlipidemia; E55.9 Vitamin D deficiency, unspecified

== ENCOUNTER → 2020-04-20 | Outpatient (CLI) | payer OTHER ==
[2020-04-20 16:49] LABS: BASO % 0.3 % (0.0-1.0); EOS % 0.3 % (1.0-4.0); HEMATOCRIT 39.3 % (37.0-47.0); LYMPH # 0.6 10*3/uL (1.3-4.4); LYMPH % 7.6 % (27.0-41.0); MEAN CORPUSCULAR HGB CONC 30.8 g/dl (33.0-37.0); MEAN PLATELET VOLUME 11.5 fl (9.6-12.3); MONO # 0.2 10*3/uL (0.1-1.0); MONO % 2.5 % (3.0-9.0); NEUT # 7.1 10*3/uL (2.3-7.9); NEUT % 89.2 % (47.0-73.0); PLATELET COUNT AUTOMATED 194 10*3/uL (130-400); RED BLOOD COUNT 4.32 10*6/uL (4.10-5.10); RED CELL DISTRI WIDTH 14.3 % (0-14.5)
[2020-04-20 17:08] LABS: ALBUMIN 3.1 gm/dl (3.1-4.5); ALKALINE PHOSPHATASE 103 U/L (45-117); BUN 18 mg/dl (7-24); CHLORIDE 107 mmol/L (98-107); CREATININE 0.95 mg/dL (0.55-1.02); POTASSIUM 4.4 mmol/L (3.5-5.1); SGOT/AST 14 IU/L (3-35); SGPT/ALT 15 U/L (12-78); SODIUM 143 mmol/L (136-145); TOTAL PROTEIN 6.4 gm/dL (6.4-8.2)
== END | disposition home or self-care (01) ==
LOC: LAB 16:23
PROVIDERS: ATTEND Internal Medicine
DX: C64.9 Malignant neoplasm of unspecified kidney, except renal pelvis (principal); R91.8 Other nonspecific abnormal finding of lung field; D68.51 Activated protein C resistance; N28.89 Other specified disorders of kidney and ureter

== ENCOUNTER → 2020-06-17 | Outpatient (CLI) | payer OTHER ==
[2020-06-17 10:03] LABS: ALBUMIN 3.3 gm/dl (3.1-4.5); CREATININE 1.12 mg/dL (0.55-1.02); FREE T4 1.31 ng/dl (0.76-1.46); TOTAL PROTEIN 6.6 gm/dL (6.4-8.2)
[2020-06-17 10:08] LABS: THYROID STIM HORMONE (HS) 1.1 uIU/ml (0.358-4.75)
[2020-06-18 12:07] LABS: CREATININE,URINE 200.8 mg/dL (Not Estab.)
== END | disposition home or self-care (01) ==
LOC: LAB 08:48
PROVIDERS: ATTEND Nurse Practitioner
DX: E11.9 Type 2 diabetes mellitus without complications (principal); E03.9 Hypothyroidism, unspecified; E55.9 Vitamin D deficiency, unspecified; E78.2 Mixed hyperlipidemia

== ENCOUNTER → 2020-11-25 | Outpatient (CLI) | payer OTHER ==
[2020-11-25 15:25] LABS: CHLORIDE 103 mmol/L (98-107); SODIUM 138 mmol/L (136-145)
[2020-11-25 15:35] LABS: ALBUMIN 3.4 gm/dl (3.1-4.5); ALKALINE PHOSPHATASE 115 U/L (45-117); BUN 20 mg/dl (7-24); CHOLESTEROL 266 mg/dL (<200); CREATININE 0.95 mg/dL (0.55-1.02); FREE T4 1.63 ng/dl (0.76-1.46); LDL CHOLESTEROL 167 mg/dL (9-159); SGOT/AST 15 IU/L (3-35); SGPT/ALT 23 U/L (12-78); THYROID STIM HORMONE (HS) 0.041 uIU/ml (0.358-4.75); TOTAL PROTEIN 6.7 gm/dL (6.4-8.2); TRIGLYCERIDES 113 mg/dl (<150)
[2020-11-26 08:08] LABS: LDL CHOLESTEROL (DIRECT) 171 mg/dL (0-99)
[2020-11-26 11:07] LABS: CREATININE,URINE 75.3 mg/dL (Not Estab.)
== END | disposition home or self-care (01) ==
LOC: LAB 14:30
PROVIDERS: Nurse Practitioner; ATTEND Internal Medicine Cardiovascular Disease
DX: E11.9 Type 2 diabetes mellitus without complications (principal); E03.9 Hypothyroidism, unspecified; E78.2 Mixed hyperlipidemia; E55.9 Vitamin D deficiency, unspecified; R53.82 Chronic fatigue, unspecified

== ENCOUNTER → 2021-04-03 | Outpatient (CLI) | payer OTHER ==
[2021-04-03 19:42] LABS: ALBUMIN 3.2 gm/dl (3.1-4.5); CREATININE 1.3 mg/dL (0.55-1.02); FREE T4 1.58 ng/dl (0.76-1.46); POTASSIUM 4.2 mmol/L (3.5-5.1); TOTAL PROTEIN 7.1 gm/dL (6.4-8.2)
[2021-04-03 19:46] LABS: THYROID STIM HORMONE (HS) 0.086 uIU/ml (0.358-4.75)
[2021-04-05 06:36] LABS: CREATININE,URINE 175.6 mg/dL (Not Estab.)
[2021-04-05 08:06] LABS: LDL CHOLESTEROL (DIRECT) 169 mg/dL (0-99)
== END | disposition home or self-care (01) ==
LOC: LAB 18:39
PROVIDERS: ATTEND Nurse Practitioner
DX: E11.9 Type 2 diabetes mellitus without complications (principal)

== ENCOUNTER → 2021-04-20 | Outpatient (CLI) | payer OTHER | END | disposition home or self-care (01) | LOC: CT 16:00 | PROVIDERS: ATTEND Anesthesiology Pain Medicine | DX: M47.22 Other spondylosis with radiculopathy, cervical region (principal) ==

== ENCOUNTER 2021-08-10 09:46 | Emergency (ER) | payer OTHER ==
[~2021-08-10] VITALS: Ht 160 cm; Wt 131.1 kg
[2021-08-10 10:24] LABS: BILIRUBIN Negative (Negative); BLOOD Negative (Negative); CLARITY Clear (Clear); COLOR Yellow (Yellow); GLUCOSE Negative (Negative); KETONE Negative (Negative); LEUKO ESTERASE Trace (Negative); NITRITE Negative (Negative); SPECIFIC GRAVITY <= 1.005 (1.001-1.030); UROBILINOGEN 0.2 E.U./dl (0.0-1.0)
[2021-08-10 10:34] LABS: BASO % 0.3 % (0.0-1.0); EOS # 0.1 10*3/uL (0.0-0.4); EOS % 0.4 % (1.0-4.0); HEMATOCRIT 40.3 % (37.0-47.0); LYMPH # 0.9 10*3/uL (1.3-4.4); LYMPH % 8.2 % (27.0-41.0); MEAN CELL VOLUME 90.2 fl (81.0-99.0); MEAN CORPUSCULAR HGB 27.1 pg (27.0-31.0); MEAN PLATELET VOLUME 10.4 fl (9.6-12.3); MONO # 0.7 10*3/uL (0.1-1.0); MONO % 6.1 % (3.0-9.0); NEUT # 9.7 10*3/uL (2.3-7.9); NEUT % 84.3 % (47.0-73.0); PLATELET COUNT AUTOMATED 222 10*3/uL (130-400); RED BLOOD COUNT 4.47 10*6/uL (4.10-5.10); RED CELL DISTRI WIDTH 18.2 % (0-14.5); WHITE BLOOD COUNT 11.5 10*3/uL (4.8-10.8)
[2021-08-10 10:43] LABS: BACTERIA 3+; WBC 16-20 wbc/hpf (0-5)
[2021-08-10 10:51] LABS: CREATININE 1.14 mg/dL (0.55-1.02); POTASSIUM 3.7 mmol/L (3.5-5.1); TOTAL PROTEIN 6.9 gm/dL (6.4-8.2)
[2021-08-10 11:37] LABS: ACT PARTIAL THROMBO TIME 30.8 SECONDS (20.0-32.1); INTERNATIONAL NORM RATIO 1.9 (2.0-3.5)
== END 2021-08-10 14:55 | disposition home or self-care (01) ==
LOC: ED 09:46
PROVIDERS: Emergency Medicine
DX: E11.649 Type 2 diabetes mellitus with hypoglycemia without coma (principal); E78.5 Hyperlipidemia, unspecified; E66.9 Obesity, unspecified; E66.01 Morbid (severe) obesity due to excess calories; I10 Essential (primary) hypertension; J44.9 Chronic obstructive pulmonary disease, unspecified; Z79.899 Other long term (current) drug therapy; Z90.49 Acquired absence of other specified parts of digestive tract; Z90.710 Acquired absence of both cervix and uterus; Z90.89 Acquired absence of other organs; Z98.890 Other specified postprocedural states; Z88.1 Allergy status to other antibiotic agents; Z88.8 Allergy status to other drugs, medicaments and biological substances

== ENCOUNTER → 2021-10-29 | Outpatient (CLI) | payer OTHER ==
[2021-10-29 19:11] LABS: CREATININE 1.14 mg/dL (0.55-1.02); FREE T4 0.34 ng/dl (0.76-1.46); POTASSIUM 3.7 mmol/L (3.5-5.1); TOTAL PROTEIN 6.9 gm/dL (6.4-8.2)
[2021-10-29 19:15] LABS: THYROID STIM HORMONE (HS) 91.3 uIU/ml (0.358-4.75)
[2021-10-31 04:06] LABS: LDL CHOLESTEROL (DIRECT) 246 mg/dL (0-99)
== END | disposition home or self-care (01) ==
LOC: LAB 17:53
PROVIDERS: ATTEND Nurse Practitioner
DX: E11.9 Type 2 diabetes mellitus without complications (principal); E03.9 Hypothyroidism, unspecified; E78.2 Mixed hyperlipidemia

== ENCOUNTER 2021-11-13 11:55 | Emergency (ER) | payer OTHER ==
[~2021-11-13] VITALS: Wt 136.5 kg
[2021-11-13 12:35] LABS: BASO % 0.3 % (0.0-1.0); EOS % 0.2 % (1.0-4.0); HEMATOCRIT 36.8 % (37.0-47.0); LYMPH # 0.6 10*3/uL (1.3-4.4); LYMPH % 9.8 % (27.0-41.0); MEAN CELL VOLUME 88.9 fl (81.0-99.0); MEAN CORPUSCULAR HGB 26.8 pg (27.0-31.0); MEAN CORPUSCULAR HGB CONC 30.2 g/dl (33.0-37.0); MEAN PLATELET VOLUME 10.1 fl (9.6-12.3); MONO # 0.3 10*3/uL (0.1-1.0); MONO % 3.8 % (3.0-9.0); NEUT # 5.6 10*3/uL (2.3-7.9); NEUT % 85.1 % (47.0-73.0); PLATELET COUNT AUTOMATED 245 10*3/uL (130-400); RED BLOOD COUNT 4.14 10*6/uL (4.10-5.10); RED CELL DISTRI WIDTH 15.5 % (0-14.5); WHITE BLOOD COUNT 6.6 10*3/uL (4.8-10.8)
[2021-11-13 13:03] LABS: ALKALINE PHOSPHATASE 107 U/L (45-117); BUN 23 mg/dl (7-24); CHLORIDE 104 mmol/L (98-107); CREATININE 1.09 mg/dL (0.55-1.02); POTASSIUM 3.9 mmol/L (3.5-5.1); SGOT/AST 16 IU/L (3-35); SGPT/ALT 24 U/L (12-78); SODIUM 141 mmol/L (136-145); TOTAL PROTEIN 6.6 gm/dL (6.4-8.2)
[2021-11-13 13:05] LABS: ACT PARTIAL THROMBO TIME 45.8 SECONDS (20.0-32.1); INTERNATIONAL NORM RATIO 4.1 (2.0-3.5)
== END 2021-11-13 19:20 | disposition home or self-care (01) ==
LOC: ED 11:55
PROVIDERS: Family Medicine
DX: R07.9 Chest pain, unspecified (principal); Z88.0 Allergy status to penicillin; Z88.1 Allergy status to other antibiotic agents; Z88.8 Allergy status to other drugs, medicaments and biological substances; Z79.899 Other long term (current) drug therapy

== ENCOUNTER 2021-11-26 04:12 | Emergency (ER) | payer OTHER ==
[2021-11-26 04:43] LABS: BASO % 0.5 % (0.0-1.0); EOS % 0.5 % (1.0-4.0); HEMATOCRIT 32.7 % (37.0-47.0); LYMPH # 0.8 10*3/uL (1.3-4.4); MEAN CELL VOLUME 87.2 fl (81.0-99.0); MEAN CORPUSCULAR HGB 26.7 pg (27.0-31.0); MEAN CORPUSCULAR HGB CONC 30.6 g/dl (33.0-37.0); MEAN PLATELET VOLUME 10.3 fl (9.6-12.3); MONO # 0.7 10*3/uL (0.1-1.0); MONO % 11.2 % (3.0-9.0); NEUT # 4.7 10*3/uL (2.3-7.9); PLATELET COUNT AUTOMATED 207 10*3/uL (130-400); RED BLOOD COUNT 3.75 10*6/uL (4.10-5.10); RED CELL DISTRI WIDTH 15.6 % (0-14.5); WHITE BLOOD COUNT 6.2 10*3/uL (4.8-10.8)
[2021-11-26 05:01] LABS: ALKALINE PHOSPHATASE 99 U/L (45-117); BUN 19 mg/dl (7-24); CHLORIDE 103 mmol/L (98-107); CREATININE 1.04 mg/dL (0.55-1.02); POTASSIUM 3.7 mmol/L (3.5-5.1); SGOT/AST 59 IU/L (3-35); SGPT/ALT 29 U/L (12-78); SODIUM 138 mmol/L (136-145); TOTAL PROTEIN 6.2 gm/dL (6.4-8.2)
== END 2021-11-26 05:46 | disposition short-term general hospital (02) ==
LOC: ED 04:12
PROVIDERS: Internal Medicine
DX: I21.3 ST elevation (STEMI) myocardial infarction of unspecified site (principal); Z88.0 Allergy status to penicillin; Z88.1 Allergy status to other antibiotic agents; Z88.8 Allergy status to other drugs, medicaments and biological substances; Z79.899 Other long term (current) drug therapy; Z90.49 Acquired absence of other specified parts of digestive tract; Z90.89 Acquired absence of other organs; Z98.890 Other specified postprocedural states; Z90.710 Acquired absence of both cervix and uterus

== ENCOUNTER 2022-03-15 22:39 | Inpatient (IN) | payer OTHER, MEDICARE ==
[~2022-03-15] VITALS: Ht 160 cm; Wt 112.6 kg
[~2022-03-15 22:39] MED LIST changes: +ATORVASTATIN CA80 M1 PO; +BRILINTA90 M1 PO; +FAMOTIDINE20 M1 PO; +VENT7GM INH; +WARFARIN SOD2 MG PO
[2022-03-15 22:43] VITALS: BP 166/76
[2022-03-15 23:03] LABS: BASO % 0.4 % (0.0-1.0); EOS # 0.1 10*3/uL (0.0-0.4); EOS % 1.4 % (1.0-4.0); HEMATOCRIT 30.1 % (37.0-47.0); LYMPH # 0.9 10*3/uL (1.3-4.4); LYMPH % 11.4 % (27.0-41.0); MEAN CELL VOLUME 78.4 fl (81.0-99.0); MEAN CORPUSCULAR HGB 21.1 pg (27.0-31.0); MEAN CORPUSCULAR HGB CONC 26.9 g/dl (33.0-37.0); MEAN PLATELET VOLUME 11.3 fl (9.6-12.3); MONO # 0.7 10*3/uL (0.1-1.0); MONO % 8.7 % (3.0-9.0); NEUT # 6.1 10*3/uL (2.3-7.9); NEUT % 77.6 % (47.0-73.0); PLATELET COUNT AUTOMATED 325 10*3/uL (130-400); RED BLOOD COUNT 3.84 10*6/uL (4.10-5.10); RED CELL DISTRI WIDTH 17.6 % (0-14.5); WHITE BLOOD COUNT 7.9 10*3/uL (4.8-10.8)
[2022-03-15 23:15] LABS: ACT PARTIAL THROMBO TIME 30.2 SECONDS (20.0-32.1); INTERNATIONAL NORM RATIO 2.2 (2.0-3.5)
[2022-03-15 23:19] LABS: ALKALINE PHOSPHATASE 123 U/L (46-116); BUN 8 mg/dl (9-23); CHLORIDE 106 mmol/L (98-107); POTASSIUM 3.3 mmol/L (3.4-5.1); SGPT/ALT 36 U/L (10-49); TOTAL PROTEIN 6.7 gm/dL (6.0-8.0)
[2022-03-16] VITALS (10 sets, daily range): BP systolic 122–161; BP diastolic 40–66
[2022-03-16] MEDS ORDERED: ROPINIROLE HYD0.5 MG PO (03:33)
[2022-03-16] MEDS ORDERED: Coumadin2 MG PO ×2 (03:37→03:38)
[2022-03-16] MEDS ORDERED: OXYGEN NAS (03:40)
[2022-03-16] MEDS ORDERED: SENOKOT8.6 MG PO (03:46)
[2022-03-16] MEDS ORDERED: NOVOLOG10 ML IV (03:47)
[2022-03-16] MEDS ORDERED: VITAMIN B121000 MC1 PO (03:48)
[2022-03-16] MEDS ORDERED: ONDANSETRON4 MG SL (03:48)
[2022-03-16] MEDS ORDERED: TRINTELLIX10 MG PO (03:48)
[2022-03-16] MEDS ORDERED: MS CONTIN15 MG PO (03:49)
[2022-03-16] MEDS ORDERED: PROTONIX40 MG PO (03:49)
[2022-03-17] VITALS: BP 132/48
[2022-03-17 04:00] VITALS: BP 126/57
[2022-03-17 06:51] LABS: BASO % 0.6 % (0.0-1.0); EOS # 0.1 10*3/uL (0.0-0.4); EOS % 2.1 % (1.0-4.0); HEMATOCRIT 27.6 % (37.0-47.0); LYMPH # 0.9 10*3/uL (1.3-4.4); MEAN CELL VOLUME 75.8 fl (81.0-99.0); MEAN CORPUSCULAR HGB 21.7 pg (27.0-31.0); MEAN CORPUSCULAR HGB CONC 28.6 g/dl (33.0-37.0); MEAN PLATELET VOLUME 10.9 fl (9.6-12.3); MONO # 0.7 10*3/uL (0.1-1.0); NEUT # 4.4 10*3/uL (2.3-7.9); NEUT % 70.7 % (47.0-73.0); PLATELET COUNT AUTOMATED 307 10*3/uL (130-400); RED BLOOD COUNT 3.64 10*6/uL (4.10-5.10); RED CELL DISTRI WIDTH 17.6 % (0-14.5); WHITE BLOOD COUNT 6.3 10*3/uL (4.8-10.8)
[2022-03-17 07:21] LABS: BUN 8 mg/dl (9-23); CHLORIDE 99 mmol/L (98-107); FREE T4 2.31 ng/dl (0.89-1.76); POTASSIUM 3.3 mmol/L (3.4-5.1); THYROID STIM HORMONE (HS) 0.337 uIU/ml (0.550-4.780)
[2022-03-17 07:27] VITALS: BP 138/52
[2022-03-17 07:38] LABS: INTERNATIONAL NORM RATIO 1.9 (2.0-3.5)
[2022-03-17 12:00] VITALS: BP 118/60
[2022-03-17 16:00] VITALS: BP 136/50
[2022-03-17 18:00] VITALS: BP 115/40
[2022-03-18] VITALS: BP 110/47
[2022-03-18 06:33] LABS: BASO % 0.1 % (0.0-1.0); EOS # 0.1 10*3/uL (0.0-0.4); EOS % 0.9 % (1.0-4.0); HEMATOCRIT 28.8 % (37.0-47.0); LYMPH # 0.9 10*3/uL (1.3-4.4); LYMPH % 13.6 % (27.0-41.0); MEAN CELL VOLUME 74.6 fl (81.0-99.0); MEAN CORPUSCULAR HGB CONC 28.1 g/dl (33.0-37.0); MEAN PLATELET VOLUME 10.9 fl (9.6-12.3); MONO # 0.7 10*3/uL (0.1-1.0); MONO % 10.2 % (3.0-9.0); NEUT # 5.1 10*3/uL (2.3-7.9); NEUT % 74.8 % (47.0-73.0); PLATELET COUNT AUTOMATED 330 10*3/uL (130-400); RED BLOOD COUNT 3.86 10*6/uL (4.10-5.10); RED CELL DISTRI WIDTH 17.7 % (0-14.5); WHITE BLOOD COUNT 6.8 10*3/uL (4.8-10.8)
[2022-03-18 06:41] LABS: INTERNATIONAL NORM RATIO 1.7 (2.0-3.5)
[2022-03-18 06:52] LABS: ALKALINE PHOSPHATASE 100 U/L (46-116); BUN 12 mg/dl (9-23); CHLORIDE 94 mmol/L (98-107); POTASSIUM 3.8 mmol/L (3.4-5.1); SGPT/ALT 36 U/L (10-49); TOTAL PROTEIN 6.3 gm/dL (6.0-8.0)
[2022-03-18 07:39] VITALS: BP 136/76
[2022-03-18 12:00] VITALS: BP 132/66
[2022-03-18 16:00] VITALS: BP 124/47
[2022-03-18 20:00] VITALS: BP 123/42
[2022-03-19] VITALS: BP 114/52
[2022-03-19 07:33] LABS: BASO % 0.3 % (0.0-1.0); EOS # 0.1 10*3/uL (0.0-0.4); EOS % 1.1 % (1.0-4.0); HEMATOCRIT 29.5 % (37.0-47.0); LYMPH # 1.1 10*3/uL (1.3-4.4); LYMPH % 15.2 % (27.0-41.0); MEAN CELL VOLUME 74.7 fl (81.0-99.0); MEAN CORPUSCULAR HGB 21.3 pg (27.0-31.0); MEAN CORPUSCULAR HGB CONC 28.5 g/dl (33.0-37.0); MONO # 0.8 10*3/uL (0.1-1.0); MONO % 10.3 % (3.0-9.0); NEUT # 5.3 10*3/uL (2.3-7.9); NEUT % 72.6 % (47.0-73.0); PLATELET COUNT AUTOMATED 342 10*3/uL (130-400); RED BLOOD COUNT 3.95 10*6/uL (4.10-5.10); RED CELL DISTRI WIDTH 17.5 % (0-14.5); WHITE BLOOD COUNT 7.3 10*3/uL (4.8-10.8)
[2022-03-19 07:43] LABS: INTERNATIONAL NORM RATIO 1.9 (2.0-3.5)
[2022-03-19 08:00] VITALS: BP 132/52
[2022-03-19 12:00] VITALS: BP 122/56
[2022-03-19] MEDS ORDERED: SYNTHROID,LEV175 MCG PO (12:19)
== END 2022-03-19 12:46 | disposition home health service (06) | DRG 280 ==
LOC: ED 22:39 → EDHOLD 03-16 03:32 → 5E 03-16 03:32
PROVIDERS: Emergency Medicine; Internal Medicine; Student in an Organized Health Care Education/Training Program; ADMIT Emergency Medicine; ATTEND Emergency Medicine
DX: I21.4 Non-ST elevation (NSTEMI) myocardial infarction (principal); I50.43 Acute on chronic combined systolic (congestive) and diastolic (congestive) heart failure; D68.51 Activated protein C resistance; J96.11 Chronic respiratory failure with hypoxia; Z68.41 Body mass index [BMI] 40.0-44.9, adult; M31.6 Other giant cell arteritis; G89.29 Other chronic pain; E66.01 Morbid (severe) obesity due to excess calories; E87.6 Hypokalemia; D50.9 Iron deficiency anemia, unspecified; E11.65 Type 2 diabetes mellitus with hyperglycemia; D86.9 Sarcoidosis, unspecified; I11.0 Hypertensive heart disease with heart failure; E78.5 Hyperlipidemia, unspecified; J44.9 Chronic obstructive pulmonary disease, unspecified; E83.42 Hypomagnesemia; Z88.1 Allergy status to other antibiotic agents; Z88.0 Allergy status to penicillin; Z88.8 Allergy status to other drugs, medicaments and biological substances; Z86.16 Personal history of COVID-19; I25.2 Old myocardial infarction; Z90.710 Acquired absence of both cervix and uterus; Z95.5 Presence of coronary angioplasty implant and graft; Z82.49 Family history of ischemic heart disease and other diseases of the circulatory system; Z82.3 Family history of stroke; Z79.4 Long term (current) use of insulin; Z99.81 Dependence on supplemental oxygen

== ENCOUNTER 2022-03-29 11:23 | Emergency (ER) | payer OTHER ==
[~2022-03-29] VITALS: Ht 160 cm; Wt 114.8 kg
[~2022-03-29 11:23] MED LIST changes: +Coumadin2 MG PO; +MS CONTIN15 MG PO; +NOVOLOG10 ML IV; +ONDANSETRON4 MG SL; +PROTONIX40 MG PO; +ROPINIROLE HYD0.5 MG PO; +SENOKOT8.6 MG PO; +TRINTELLIX10 MG PO; +VITAMIN B121000 MC1 PO
[2022-03-29 12:14] LABS: BASO % 0.5 % (0.0-1.0); EOS # 0.1 10*3/uL (0.0-0.4); EOS % 0.6 % (1.0-4.0); HEMATOCRIT 28.6 % (37.0-47.0); LYMPH # 0.5 10*3/uL (1.3-4.4); LYMPH % 5.5 % (27.0-41.0); MEAN CELL VOLUME 77.7 fl (81.0-99.0); MEAN CORPUSCULAR HGB 20.9 pg (27.0-31.0); MEAN CORPUSCULAR HGB CONC 26.9 g/dl (33.0-37.0); MEAN PLATELET VOLUME 10.4 fl (9.6-12.3); MONO # 0.3 10*3/uL (0.1-1.0); NEUT # 7.5 10*3/uL (2.3-7.9); NEUT % 88.7 % (47.0-73.0); PLATELET COUNT AUTOMATED 333 10*3/uL (130-400); RED BLOOD COUNT 3.68 10*6/uL (4.10-5.10); RED CELL DISTRI WIDTH 17.4 % (0-14.5); WHITE BLOOD COUNT 8.5 10*3/uL (4.8-10.8)
[2022-03-29 12:26] LABS: ACT PARTIAL THROMBO TIME 23.7 SECONDS (20.0-32.1); INTERNATIONAL NORM RATIO 1.4 (2.0-3.5)
[2022-03-29 12:29] LABS: ALKALINE PHOSPHATASE 107 U/L (46-116); BUN 13 mg/dl (9-23); CHLORIDE 105 mmol/L (98-107); POTASSIUM 4.2 mmol/L (3.4-5.1); SGPT/ALT 33 U/L (10-49); TOTAL PROTEIN 6.1 gm/dL (6.0-8.0)
[2022-03-29] MEDS ORDERED: LASIX40 MG PO (17:28)
== END 2022-03-29 17:25 | disposition home or self-care (01) ==
LOC: ED 11:23
PROVIDERS: Emergency Medicine
DX: I50.9 Heart failure, unspecified (principal); R05.9 Cough, unspecified; Z88.0 Allergy status to penicillin; Z88.1 Allergy status to other antibiotic agents; Z88.8 Allergy status to other drugs, medicaments and biological substances; Z90.710 Acquired absence of both cervix and uterus; Z90.49 Acquired absence of other specified parts of digestive tract; Z90.89 Acquired absence of other organs; Z98.890 Other specified postprocedural states; E11.9 Type 2 diabetes mellitus without complications; J45.909 Unspecified asthma, uncomplicated; M19.90 Unspecified osteoarthritis, unspecified site

== ENCOUNTER 2022-04-13 15:52 | Emergency (ER) | payer OTHER, MEDICARE ==
[~2022-04-13] VITALS: Ht 160 cm; Wt 110.2 kg
[~2022-04-13 15:52] MED LIST changes: +LASIX40 MG PO
[2022-04-13 16:27] LABS: BASO % 0.1 % (0.0-1.0); EOS % 0.1 % (1.0-4.0); HEMATOCRIT 25.8 % (37.0-47.0); LYMPH # 0.4 10*3/uL (1.3-4.4); LYMPH % 5.2 % (27.0-41.0); MEAN CELL VOLUME 75.7 fl (81.0-99.0); MEAN CORPUSCULAR HGB 20.8 pg (27.0-31.0); MEAN CORPUSCULAR HGB CONC 27.5 g/dl (33.0-37.0); MEAN PLATELET VOLUME 9.7 fl (9.6-12.3); MONO # 0.4 10*3/uL (0.1-1.0); MONO % 5.2 % (3.0-9.0); NEUT # 7.2 10*3/uL (2.3-7.9); NEUT % 88.8 % (47.0-73.0); PLATELET COUNT AUTOMATED 278 10*3/uL (130-400); RED BLOOD COUNT 3.41 10*6/uL (4.10-5.10); RED CELL DISTRI WIDTH 17.4 % (0-14.5); WHITE BLOOD COUNT 8.1 10*3/uL (4.8-10.8)
[2022-04-13 16:42] LABS: ALKALINE PHOSPHATASE 122 U/L (46-116); BUN 11 mg/dl (9-23); CHLORIDE 101 mmol/L (98-107); POTASSIUM 3.7 mmol/L (3.4-5.1); SGPT/ALT 32 U/L (10-49); TOTAL PROTEIN 5.8 gm/dL (6.0-8.0)
== END 2022-04-13 21:27 | disposition home or self-care (01) ==
LOC: ED 15:52
PROVIDERS: Nurse Practitioner Family
DX: J44.9 Chronic obstructive pulmonary disease, unspecified (principal); I50.9 Heart failure, unspecified; Z88.1 Allergy status to other antibiotic agents; Z88.8 Allergy status to other drugs, medicaments and biological substances; Z88.0 Allergy status to penicillin; Z79.899 Other long term (current) drug therapy; Z90.49 Acquired absence of other specified parts of digestive tract; Z90.710 Acquired absence of both cervix and uterus; Z90.89 Acquired absence of other organs; Z98.890 Other specified postprocedural states

== ENCOUNTER → 2022-07-16 | Outpatient (CLI) | payer OTHER, MEDICARE ==
[~2022-07-16] MED LIST changes: +CLOPIDOGREL75 MG PO; +FUROSEMIDE40 MG PO; +LANTUS SOL100 UNIT/1 SC; +LOSARTAN POTASS25 M1 PO; +MORPHINE SULFAT30 M9 PO; +WARFARIN SODIUM1 MG PO
[2022-07-16 19:35] LABS: ALKALINE PHOSPHATASE 129 U/L (46-116); BUN 13 mg/dl (9-23); CHLORIDE 104 mmol/L (98-107); CHOLESTEROL 128 mg/dL (<200); FREE T4 1.67 ng/dl (0.89-1.76); LDL CHOLESTEROL 56 mg/dL (9-159); POTASSIUM 4.3 mmol/L (3.4-5.1); SGPT/ALT 13 U/L (10-49); THYROID STIM HORMONE (HS) 0.149 uIU/ml (0.550-4.780); TRIGLYCERIDES 81 mg/dl (<150)
[2022-07-18 09:06] LABS: HEMOGOLBIN A1C 7.6 % (4.8-5.6)
== END | disposition home or self-care (01) ==
LOC: LAB 18:53
PROVIDERS: ATTEND Physician Assistant
DX: E11.9 Type 2 diabetes mellitus without complications (principal); E03.9 Hypothyroidism, unspecified; E55.9 Vitamin D deficiency, unspecified; E78.2 Mixed hyperlipidemia

== ENCOUNTER 2022-07-25 18:24 | Emergency (ER) | payer MEDICARE, OTHER ==
[~2022-07-25] VITALS: Ht 160 cm; Wt 120.2 kg
[~2022-07-25 18:24] MED LIST changes: +FEROSUL325 MG PO
[2022-07-25 19:47] LABS: BILIRUBIN Negative (Negative); BLOOD Negative (Negative); CLARITY Clear (Clear); COLOR Yellow (Yellow); GLUCOSE Negative (Negative); KETONE Negative (Negative); LEUKO ESTERASE Trace (Negative); NITRITE Negative (Negative); UROBILINOGEN 0.2 E.U./dl (0.0-1.0)
[2022-07-25 20:12] LABS: BACTERIA TRACE
[2022-07-25 20:44] LABS: BASO % 0.3 % (0.0-1.0); EOS # 0.1 10*3/uL (0.0-0.4); EOS % 1.7 % (1.0-4.0); HEMATOCRIT 30.5 % (37.0-47.0); LYMPH # 0.7 10*3/uL (1.3-4.4); LYMPH % 10.1 % (27.0-41.0); MEAN CELL VOLUME 72.6 fl (81.0-99.0); MEAN CORPUSCULAR HGB 20.2 pg (27.0-31.0); MEAN CORPUSCULAR HGB CONC 27.9 g/dl (33.0-37.0); MEAN PLATELET VOLUME 9.3 fl (9.6-12.3); MONO # 0.5 10*3/uL (0.1-1.0); NEUT # 5.2 10*3/uL (2.3-7.9); NEUT % 80.4 % (47.0-73.0); PLATELET COUNT AUTOMATED 227 10*3/uL (130-400); RED CELL DISTRI WIDTH 23.8 % (0-14.5); WHITE BLOOD COUNT 6.4 10*3/uL (4.8-10.8)
[2022-07-25 20:53] LABS: INTERNATIONAL NORM RATIO 1.1 (2.0-3.5)
[2022-07-25 21:00] LABS: ALKALINE PHOSPHATASE 122 U/L (46-116); BUN 12 mg/dl (9-23); CHLORIDE 102 mmol/L (98-107); POTASSIUM 3.8 mmol/L (3.4-5.1); SGPT/ALT 12 U/L (10-49)
== END 2022-07-25 23:38 | disposition home or self-care (01) ==
LOC: ED 18:24
PROVIDERS: Family Medicine; Internal Medicine
DX: F41.9 Anxiety disorder, unspecified (principal); M79.606 Pain in leg, unspecified; R00.2 Palpitations; R73.9 Hyperglycemia, unspecified; D64.9 Anemia, unspecified; J44.9 Chronic obstructive pulmonary disease, unspecified; E78.5 Hyperlipidemia, unspecified; Z86.718 Personal history of other venous thrombosis and embolism; M19.90 Unspecified osteoarthritis, unspecified site; M79.7 Fibromyalgia; Z90.710 Acquired absence of both cervix and uterus; Z88.0 Allergy status to penicillin; Z88.8 Allergy status to other drugs, medicaments and biological substances; Z90.49 Acquired absence of other specified parts of digestive tract; Z90.89 Acquired absence of other organs; Z98.890 Other specified postprocedural states; Z95.5 Presence of coronary angioplasty implant and graft; Z79.899 Other long term (current) drug therapy

== ENCOUNTER → 2023-01-06 | Outpatient (CLI) | payer OTHER | END | disposition home or self-care (01) | LOC: CT 12-24 13:00 → LAB 01:01 → CT 13:00 | PROVIDERS: ATTEND Family Medicine | DX: Z01.818 Encounter for other preprocedural examination (principal); C64.9 Malignant neoplasm of unspecified kidney, except renal pelvis; K44.9 Diaphragmatic hernia without obstruction or gangrene; N28.1 Cyst of kidney, acquired; Z90.710 Acquired absence of both cervix and uterus; Z90.49 Acquired absence of other specified parts of digestive tract ==

== ENCOUNTER 2023-10-20 18:52 | Emergency (ER) | payer OTHER ==
[~2023-10-20] VITALS: Wt 105.2 kg
[~2023-10-20 18:52] MED LIST changes: +Coumadin3 MG PO; +DULCOLAX STOOL100 MG PO; +PLAVIX75 M1 PO
[2023-10-20 19:27] LABS: BASO % 0.1 % (0.0-1.0); EOS # 0.1 10*3/uL (0.0-0.4); EOS % 0.7 % (1.0-4.0); HEMATOCRIT 30.2 % (37.0-47.0); LYMPH # 0.7 10*3/uL (1.3-4.4); LYMPH % 10.3 % (27.0-41.0); MEAN CELL VOLUME 78.2 fl (81.0-99.0); MEAN CORPUSCULAR HGB CONC 28.1 g/dl (33.0-37.0); MEAN PLATELET VOLUME 10.6 fl (9.6-12.3); MONO # 0.5 10*3/uL (0.1-1.0); MONO % 6.7 % (3.0-9.0); NEUT # 5.7 10*3/uL (2.3-7.9); NEUT % 81.9 % (47.0-73.0); PLATELET COUNT AUTOMATED 232 10*3/uL (130-400); RED BLOOD COUNT 3.86 10*6/uL (4.10-5.10); RED CELL DISTRI WIDTH 16.9 % (0-14.5)
[2023-10-20] MEDS ORDERED: SODIUM CHLORIDE 0.9% 1,000 ML IV ONE ×2 (19:39→20:02)
[2023-10-20 19:55] LABS: BUN 20 mg/dl (9-23); CHLORIDE 101 mmol/L (98-107); POTASSIUM 4.1 mmol/L (3.4-5.1)
== END 2023-10-20 21:50 | disposition home or self-care (01) ==
LOC: ED 18:52
PROVIDERS: Internal Medicine
DX: D50.9 Iron deficiency anemia, unspecified (principal); T65.891A Toxic effect of other specified substances, accidental (unintentional), initial encounter; E11.22 Type 2 diabetes mellitus with diabetic chronic kidney disease; N18.31 Chronic kidney disease, stage 3a; M19.90 Unspecified osteoarthritis, unspecified site; E11.65 Type 2 diabetes mellitus with hyperglycemia; F32.A Depression, unspecified; J45.909 Unspecified asthma, uncomplicated; M79.7 Fibromyalgia; I25.2 Old myocardial infarction; Z88.0 Allergy status to penicillin; Z88.8 Allergy status to other drugs, medicaments and biological substances; Z88.6 Allergy status to analgesic agent; Z88.1 Allergy status to other antibiotic agents; Z90.710 Acquired absence of both cervix and uterus; Z90.49 Acquired absence of other specified parts of digestive tract; Z90.89 Acquired absence of other organs; Z95.5 Presence of coronary angioplasty implant and graft; Z98.890 Other specified postprocedural states; Y92.009 Unspecified place in unspecified non-institutional (private) residence as the place of occurrence of the external cause